=== PATIENT | female | born 1975 | race Caucasian/White ===

== ENCOUNTER → 2019-11-27 | Outpatient (CLI) | payer BC, OTHER ==
[~2019-11-27] MED LIST: CLARITIN10 MG PO; OCELLA TABLET1 EACH PO; PRENATAL PO; SYNTHROID100 MCG PO; VITAMIN E100 UNI2 PO
== END ==
LOC: CAT 15:15
DX: J32.9 Chronic sinusitis, unspecified (principal); J34.89 Other specified disorders of nose and nasal sinuses